=== PATIENT | female | born 1955 | race Caucasian/White ===

== ENCOUNTER → 2016-03-26 | Outpatient (CLI) | payer OTHER | LOC: LAB.O 09:09 | PROVIDERS: ATTEND Family Medicine | DX: R94.5 Abnormal results of liver function studies (principal); B19.20 Unspecified viral hepatitis C without hepatic coma ==

== ENCOUNTER → 2016-06-08 | Outpatient (CLI) | payer OTHER | END | disposition home or self-care (01) | LOC: LAB.O 10:05 | PROVIDERS: ATTEND Internal Medicine Gastroenterology | DX: B18.2 Chronic viral hepatitis C (principal) ==

== ENCOUNTER → 2016-06-18 | Outpatient (CLI) | payer OTHER | END | disposition home or self-care (01) | LOC: LAB.O 09:00 | PROVIDERS: ATTEND Internal Medicine Gastroenterology | DX: B18.2 Chronic viral hepatitis C (principal) ==

== ENCOUNTER → 2016-07-17 | Outpatient (CLI) | payer OTHER | END | disposition home or self-care (01) | LOC: LAB.O 07:48 | PROVIDERS: ATTEND Internal Medicine Gastroenterology | DX: B18.2 Chronic viral hepatitis C (principal) ==

== ENCOUNTER 2017-02-12 11:40 | Emergency (ER) | payer BC, OTHER ==
[2017-02-12 11:58] VITALS: O2SAT 96
--- NOTE | 2017-02-12 11:59 | ED.PDOC ---
History of Present Illness - General Chief Complaint: Respiratory Problem Stated Complaint: Headache, bodyaches Time Seen by Provider: 02/12/17 11:51 Source: patient Exam Limitations: no limitations - History of Present Illness Comments: Aundrea Luna 61 y/o female stated that ubaldo had slightly productive cough for the last 5 days and 3 days ago with flu like symptoms.No nausea /vomiting,no ill contact Timing/Duration: other - 5 days Cough Quality/Degree: moderate, dry cough Possible Cause: occasional episodes Improving Factors: nothing, eating Associated Symptoms: muscle aches, nasal congestion Respiratory Risk Factors: other - weather Allergies/Adverse Reactions: Allergies Sulfur Allergy (Verified 02/12/17 11:51) UN Allergy (Uncoded 05/03/15 09:54) SURGICAL TAPE Home Medications: Ambulatory Orders Finasteride [Proscar] 2.5 mg PO DAILY 05/03/15 Montelukast [Singulair] 10 mg PO DAILY 05/03/15 Non-Formulary Medication 1 ea SUBCU PRN 05/03/15 Oxybutynin Chloride [Oxybutynin Chloride ER] 5 mg PO DAILY 05/03/15 Thyroid [Soddy Daisy Thyroid] 60 mg PO DAILY 05/03/15 Triamterene & Hydrochlorothiaz [Triamterene/Hydrochloroth 37.5-25 mg] 1 tab PO DAILY 05/03/15 Potassium Chloride [Potassium Chloride ER] 20 meq PO DAILY 05/07/15 Benzonatate Perles [Tessalon Perles] 200 mg PO BID #60 cap 02/12/17 Oseltamivir Phosphate [Tamiflu] 75 mg PO BID #10 cap 02/12/17 Review of Systems - Review of Systems Constitutional: States: no symptoms reported EENTM: States: no symptoms reported Respiratory: States: see HPI Cardiology: States: no symptoms reported, chest pain Genitourinary: States: no symptoms reported Musculoskeletal: States: see HPI Skin: States: no symptoms reported Past Medical History (General) - Patient Medical History Surgical History: other - hysterectomy,breast implant - Social History Hx Tobacco Use: No Hx Alcohol Use: No Hx Substance Use: No Hx Physical Abuse: No Hx Emotional Abuse: No Hx Suspected Abuse: No Family Medical History - Family History Mother Family History: Unknown Living Status: Physical Exam - Physical Exam General Appearance: Alert, Comfortable, No apparent distress Eye Exam: bilateral normal ENT Exam: normal ENT inspection, hearing grossly normal, pharynx normal Neck: non-tender, supple, trachea midline Respiratory: chest non-tender, normal breath sounds Cardiovascular/Chest: normal peripheral pulses, regular rate, rhythm, no gallop , no murmur Gastrointestinal/Abdominal: normal bowel sounds, non tender, soft, no organomegaly Extremity: normal range of motion, no pedal edema, no calf tenderness Neurologic: alert, normal mood/affect, oriented x 3 Skin Exam: normal color, warm/dry Lymphatic: no adenopathy Progress - Progress Progress: 02/12/17 13:44 Last Vital Signs Temp 101.0 F H 02/12/17 13:36 Pulse 93 H 02/12/17 13:36 Resp 20 02/12/17 13:36 BP 131/71 02/12/17 13:36 Pulse Ox 96 02/12/17 13:36 - Results/Orders Results/Orders: Laboratory Tests 02/12/17 12:50 WBC 5.2 RBC 4.81 Hgb 15.0 Hct 42.3 MCV 88.0 MCH 31.1 H MCHC 35.4 RDW 12.3 Plt Count 185 MPV 8.2 Absolute Neuts (auto) 4.10 Absolute Lymphs (auto) 0.30 L Absolute Monos (auto) 0.70 Absolute Eos (auto) 0.00 Absolute Basos (auto) 0.00 Neutrophils % 78.3 H Lymphocytes % 6.5 L Monocytes % 13.9 H Eosinophils % 0.8 L Basophils % 0.5 Flu swab positive A - EKG/XRAY/CT XRAY: chest - no acute abnormality Departure - Departure Clinical Impression: Influenza A Time of Disposition: 13:46 Disposition: Discharge to Home or Self Care Condition: Good Departure Forms: ED Discharge - Pt. Copy, Patient Portal Self Enrollment Instructions: Influenza Referrals: Connor Wilson III, MD [Primary Care Provider] - 1-2 Weeks Prescriptions: Benzonatate Perles [Tessalon Perles] 200 mg PO BID #60 cap Oseltamivir Phosphate [Tamiflu] 75 mg PO BID #10 cap Home Medications: Ambulatory Orders Finasteride [Proscar] 2.5 mg PO DAILY 05/03/15 Montelukast [Singulair] 10 mg PO DAILY 05/03/15 Non-Formulary Medication 1 ea SUBCU PRN 05/03/15 Oxybutynin Chloride [Oxybutynin Chloride ER] 5 mg PO DAILY 05/03/15 Thyroid [Soddy Daisy Thyroid] 60 mg PO DAILY 05/03/15 Triamterene & Hydrochlorothiaz [Triamterene/Hydrochloroth 37.5-25 mg] 1 tab PO DAILY 05/03/15 Potassium Chloride [Potassium Chloride ER] 20 meq PO DAILY 05/07/15 Benzonatate Perles [Tessalon Perles] 200 mg PO BID #60 cap 02/12/17 Oseltamivir Phosphate [Tamiflu] 75 mg PO BID #10 cap 02/12/17 Additional Instructions: May take over the counter medications:Benadryl 25 mg one capsule 3 x a day for cough;Motrin tablets -2 tablets every 6 hours for pain fever and Tylenol 500 mg one tablet every 6 hours for pain fever
[2017-02-12] MEDS ORDERED: OSELTAMIVIR 75 MG CAP PO ONE (13:05)
[2017-02-12] MEDS ORDERED: diphenhydrAMINE HCL 25 MG CAP PO ONE (13:11)
[2017-02-12] MEDS ORDERED: ACETAMINOPHEN 500 MG TAB PO ONE (13:11)
[2017-02-12] MEDS ORDERED: IBUPROFEN 200 MG TAB PO ONE (13:11)
[2017-02-12] MEDS ORDERED: BENZONATATE PERLES 100 MG CAP PO ONE (13:11)
--- NOTE | 2017-02-12 13:30 | RAD ---
PROCEDURE: Chest,2 Views CLINICAL HISTORY: cough INDICATION: Same as above COMPARISON: None TECHNIQUE: PA and and lateral chest radiographs were obtained. FINDINGS: The lung lopes are well inflated. There are no discrete airspace infiltrates, pneumothoraces or pleural effusions. The pulmonary vascularity is normal The cardiomediastinal silhouette is unremarkable for patient's age and sex. IMPRESSION: There is no acute pleural-parenchymal process seen in the imaged lung lopes. Place of interpretation: Teleradiology. Electronically signed by: Juan Antonio Lynch MD 02/12/2017 1:28 PM [facility] Workstation: [id number]
[2017-02-12 13:42] VITALS: BP 131/71; TEMP 101
== END 2017-02-12 13:56 | disposition home or self-care (01) ==
LOC: ER 11:40
DX: J11.1 Influenza due to unidentified influenza virus with other respiratory manifestations (principal); Z88.2 Allergy status to sulfonamides; Z88.8 Allergy status to other drugs, medicaments and biological substances
CPT/HCPCS: 36415; 71020; 85025; 87502; Q0163

== ENCOUNTER → 2017-06-08 | Outpatient (CLI) | payer BC ==
--- NOTE | 2017-06-08 23:47 | US ---
Procedure: US ABDOMEN Exam Date: 06/08/2017 Ordering Provider: Lino Vale Clinical Indication: ABD PN Comparison: 12/16/2015 hepatic ultrasound Technique: Real-time ultrasonography was obtained over the abdominal viscera and livestock sales representative images were recorded. Findings: The liver is normal in size and contour. There is normal echogenicity throughout the liver. There are no intrahepatic masses. There is no intrahepatic ductal dilatation. There is a 4 mm gallbladder polyp. There are no gallstones. There is no gallbladder wall thickening or pericholecystic fluid. Negative Garza's. The extrahepatic common duct is normal in size measuring 4.9 mm. The spleen is normal in size and contour. There is normal internal echogenicity of the spleen. There are no splenic masses. The visualized portions of the pancreas are normal. The aorta has a normal appearance. The inferior vena cava has a normal appearance. The right kidney measures 9.0 cm in bipolar length. Cortical thickness and echogenicity are normal. There are no suspicious masses, calculi, or hydronephrosis. The left kidney measures 9.9 cm in bipolar length. Cortical thickness and echogenicity are normal. There are no calculi or hydronephrosis. There is a 7 mm hyperechoic avascular round lesion in the interpolar left kidney which could represent a small angiomyolipoma. There is no ascites. Impression: 1. Stable gallbladder polyp. No follow-up required. 2. 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 Electronically signed by: Nate Duff MD 06/08/2017 11:44 PM CDT
== END ==
LOC: US 05-27 09:22
PROVIDERS: ATTEND Internal Medicine Gastroenterology
DX: R10.13 Epigastric pain (principal); K82.4 Cholesterolosis of gallbladder

== ENCOUNTER → 2019-03-09 | Outpatient (CLI) | payer BC | LOC: LAB.O 16:08 | PROVIDERS: ATTEND Family Medicine | DX: E03.9 Hypothyroidism, unspecified (principal); E55.9 Vitamin D deficiency, unspecified; M25.50 Pain in unspecified joint; R53.82 Chronic fatigue, unspecified; Z77.9 Other contact with and (suspected) exposures hazardous to health ==

== ENCOUNTER → 2019-03-17 | Outpatient (CLI) | payer BC ==
--- NOTE | 2019-03-17 15:33 | MRI ---
EXAM DESCRIPTION: Cervical Spine CLINICAL HISTORY: RADICULOPATHY, CERVICAL REGION COMPARISON: None Available. TECHNIQUE: MRI of the cervical spine is performed according to our usual protocol. FINDINGS: Sagittal T2 images reveal decreased signal intensity within the intervertebral discs. Normal T2 appearance of the cervical cord. Posterior discal abnormalities are most prominent at the C3-4 C5-C6 and C6-7 levels. Sagittal T1 images show benign marrow signal characteristics. Mild marrow signal loss around degenerated C5-6 and C6-7 discs. Prominent facet spurring on the right at C4-5 and C5-6 and on the left at C6-7. Normal T1 appearance of the cervical and upper thoracic spinal cord. Normal alignment of the vertebral bodies and facets. Sagittal STIR images are negative for high signal intensity marrow edema within the vertebral bodies or posterior elements. No paraspinous fluid collection or cystic lesion. Axial images were obtained to evaluate the disc levels. C2-3: Normal posterior disc margin with no spinal stenosis or left neural foraminal narrowing. Moderate right neural foraminal narrowing related to uncinate and facet hypertrophic spurring. Normal appearance of the cord at this level. C3-4: Mild diffuse posterior bulge without spinal stenosis or significant neural foraminal narrowing. Mild facet hypertrophy. Normal appearance of the cord at this level. C4-5: Minimally prominent posterior disc margin with no spinal stenosis or left neural foraminal narrowing. Marked facet hypertrophy on the right with moderate right neural foraminal narrowing. Normal appearance of the cord at this level. C5-6: Moderate diffuse posterior disc/osteophyte complex effaces CSF anterior to the cord without cord compression or significant spinal stenosis. Moderately severe bilateral neural foraminal narrowing related to uncinate and facet hypertrophy. C6-7: Mild to moderate posterior disc/osteophyte complex without significant spinal stenosis. Mild neural foraminal narrowing. Moderate facet hypertrophic changes left more than right. Normal appearance of the cord at this level. C7-T1: Normal posterior disc margin with no spinal stenosis or neural foraminal narrowing. Facets appear normal. Normal appearance of the cord at this level. IMPRESSION: No significant spinal stenosis or acute appearing disc herniation. Multilevel disc degeneration with moderate posterior disc/osteophyte complexes at C5-6 and C6-7. Neural foraminal narrowing at levels noted above. Electronically signed by: Evan Cleary MD 03/17/2019 3:31 PM [facility]
== END ==
LOC: MRI 13:00
PROVIDERS: ATTEND Family Medicine
DX: M50.122 Cervical disc disorder at C5-C6 level with radiculopathy (principal); M50.123 Cervical disc disorder at C6-C7 level with radiculopathy; M25.78 Osteophyte, vertebrae